=== PATIENT | female | born 1995 | race Two or more races ===

== ENCOUNTER 2019-08-11 09:03 | Emergency (ER) | payer OTHER ==
[2019-08-11 09:09] VITALS: BP 137/113
[2019-08-11] MEDS ORDERED: CHERRY SYRUP 10 ML UDC PO ONE (09:56)
[2019-08-11] MEDS ORDERED: DEXAMETHASONE 10 MG/ML VIAL PO STA (09:56)
--- NOTE | 2019-08-11 10:05 | ED Physician Documentation ---
History of Present Illness - Stated complaint Stated Complaint: FACIAL RASH/THROAT FEELS TIGHT - Chief complaint Chief Complaint: Allergic Rx - History obtained from History obtained from: Patient - History of Present Illness Timing: Today - Additonal information Additional information: 23-year-old female went to the gym today to work out and she took some pre- workout and then she took a smoothie that she has not taken previously which contains a banana strawberry and Grayson seeds. She states that she has never had grayson seeds previously. She complains of stinging to the mouth, swelling in the back of the throat and hives to the face which have now faded. Her symptoms have improved. Review of Systems Constitutional: denies: Fever, Chills, Myalgias Eyes: denies: Decreased vision Ears: denies: Ear pain Nose: denies: Rhinorrhea / runny nose, Congestion Throat: reports: Sore throat Cardiac: denies: Chest pain / pressure, Palpitations Respiratory: denies: Dyspnea, Cough GI: denies: Abdominal Pain, Nausea, Vomiting : denies: Dysuria Skin: reports: Rash Musculoskeletal: denies: Neck pain, Back pain, Extremity pain PD PAST MEDICAL HISTORY - Present Medications Home Medications: Ambulatory Orders Medication Instructions Recorded Confirmed No Known Home Medications 08/11/19 08/11/19 - Allergies Allergies/Adverse Reactions: Allergies Allergy/AdvReac Type Severity Reaction Status Date / Time No Known Drug Allergies Allergy Verified 08/11/19 09:09 - Social History Does the pt smoke?: No Smoking Status: Never smoker PD ED PE NORMAL - Vitals Vital signs reviewed: Yes (hypertensive ) - General General: Alert and oriented X 3, No acute distress, Well developed/nourished - HEENT HEENT: Atraumatic, PERRL, EOMI, Ears normal, Moist mucous membranes, Other (Tonsils are 3+ on the right and 2+ on the left without exudate. The uvual is minimally swollen. ) - Neck Neck: Supple, no meningeal sign, No bony TTP - Cardiac Cardiac: RRR, No murmur - Respiratory Respiratory: No respiratory distress, Clear bilaterally - Abdomen Abdomen: Soft, Non tender - Derm Derm: Normal color, Warm and dry, No rash, Other (There is no evidence of the urticaria at the time of my exam. ) - Extremities Extremities: No deformity, No edema - Neuro Neuro: Alert and oriented X 3, behavioral technician 2-12 intact, No motor deficit, No sensory deficit, Normal speech Eye Opening: Spontaneous Motor: Obeys Commands Verbal: Oriented GCS Score: 15 - Psych Psych: Normal mood, Normal affect Results - Vitals Vitals: Vital Signs - 24 hr 08/11/19 09:07 Temperature 37 C Heart Rate 81 Respiratory 20 Rate Blood Pressure 137/113 H O2 Saturation 100 Oxygen O2 Source Room air PD MEDICAL DECISION MAKING - ED course Complexity details: considered differential, d/w patient ED course: Previously well 23-year-old female has consumed some Grayson seeds and she has had a reaction to include urticaria on her face and swelling to her posterior pharynx. She still has some residual swelling to the tonsils and she is administered dexamethasone 10 mg orally. We will place her on some Benadryl for the next 2 days. Departure - Departure Disposition: 01 Home, Self Care Clinical Impression: Allergic urticaria Instructions: ED Urticaria, ED Allergic React Food Follow-Up: VERENA Trinh [Provider Group] Comments: Avoid the Grayson seeds and take Benadryl 25 to 50 mg every 6 hours for the next 2 days.
== END 2019-08-11 10:07 | disposition home or self-care (01) ==
LOC: ED 09:03
DX: L50.0 Allergic urticaria (principal)
CPT/HCPCS: 99282; 99284; A9270